=== PATIENT | female | born 2000 | race Caucasian/White ===

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

== ENCOUNTER 2018-01-03 12:49 | Emergency (ER) | payer OTHER ==
--- NOTE | 2018-01-03 14:09 | ERPHSYRPT ---
- History of Present Illness Time Seen by Provider: 01/03/18 13:56 Historian: patient, family Exam Limitations: no limitations Patient Subjective Stated Complaint: pt reports she has been having abd pain radiaitng to her shoulder blade-n/v/d-states she had a delgado a scan earlier today and they couldn't finish it-states that she attempted to eat and vomited again Triage Nursing Assessment: pt pink warm and [id number] soft and tender to palp-resp easy and nonlabored-mucous membranes pink and moist Physician History: The patient is a 17-year-old female with her boyfriend complaining of nausea, vomiting, and right upper quadrant abdominal pain after having a HIDA scan today to evaluate her gallbladder. She went home to eat after the scan and vomited after eating cereal. She has a several month history of abdominal pain with several imaging studies to look at the gallbladder. On Wednesday she was at her boyfriend's town, [place], and went to the ER because of abdominal pain. She states that they told her that it was "definitely her gallbladder". In our system I noted that she had an abdomen pelvis CT scan done on October 18 that was negative. She had an ultrasound of the right upper quadrant done on December 29 that was negative. She had a HIDA procedure done today that was negative. Her past medical history is significant for bipolar disease. Timing/Duration: today, other (several months) Activities at Onset: other (eating) Quality: sharpness Abdominal Pain Onset Location: RUQ Pain Radiation: back Severity of Pain-Max: moderate Severity of Pain-Current: moderate Modifying Factors: Improves With: eating Associated Symptoms: nausea, vomiting Previous symptoms: same symptoms as today, recently seen, recently treated Allergies/Adverse Reactions: divalproex sodium [From Depakote] Allergy (Intermediate, Verified 01/03/18 13:23 ) Hives lithium Adverse Reaction (Intermediate, Verified 01/03/18 13:23) Rash ondansetron [From Zofran] Adverse Reaction (Intermediate, Verified 01/03/18 13: 23) "extremely nausea"-headache Home Medications: Albuterol Sulfate [Proair Hfa] 8.5 gm IH UD 12/09/17 [History] Clonidine HCl 0.2 mg PO HS 12/09/17 [History] Escitalopram Oxalate 10 mg [Lexapro 10 MG] 10 mg PO DAILY 12/09/17 [History] Lansoprazole [Prevacid 24Hr] 15 mg PO DAILY 12/09/17 [History] Lurasidone HCl [Latuda] 40 mg PO HS 12/09/17 [History] Norgestimate-Ethinyl Estradiol [Sprintec] 1 each PO DAILY 12/09/17 [History] Propranolol HCl 10 mg [Inderal 10 MG] 10 mg PO BID 12/09/17 [History] Famotidine 20 mg [Pepcid 20 MG] 40 mg PO DAILY 01/03/18 [History] Trazodone HCl 50 mg [Desyrel 50 mg] 100 mg PO HS 01/03/18 [History] Hx Tetanus, Diphtheria Vaccination/Date Given: Yes Hx Influenza Vaccination/Date Given: No Hx Pneumococcal Vaccination/Date Given: No Immunizations Up to Date: Yes - Review of Systems Constitutional: No Fever, No Chills Eyes: No Symptoms Ears, Nose, & Throat: No Symptoms Respiratory: No Cough, No Dyspnea Cardiac: No Chest Pain, No Edema, No Syncope Abdominal/Gastrointestinal: Abdominal Pain, Nausea, Vomiting Genitourinary Symptoms: No Dysuria Musculoskeletal: No Back Pain, No Neck Pain Skin: No Rash Neurological: No Dizziness, No Focal Weakness, No Sensory Changes Psychological: No Symptoms Endocrine: No Symptoms Hematologic/Lymphatic: No Symptoms Immunological/Allergic: No Symptoms All Other Systems: Reviewed and Negative - Past Medical History Pertinent Past Medical History: Yes Neurological History: No Pertinent History ENT History: No Pertinent History Cardiac History: No Pertinent History Respiratory History: Asthma Endocrine Medical History: No Pertinent History Musculoskeletal History: Degenerative Disk Disease, Osteoarthritis GI Medical History: No Pertinent History History: Other Psycho-Social History: Anxiety, Bipolar Female Reproductive Disorders: No Pertinent History Other Medical History: No other health issues noted. - Past Surgical History Past Surgical History: Yes Neuro Surgical History: No Pertinent History Cardiac: No Pertinent History Respiratory: No Pertinent History Gastrointestinal: Exploratory Laparoscopy, Other Genitourinary: No Pertinent History, Other Musculoskeletal: Orthopedic Surgery Female Surgical History: Other Other Surgical History: back surgery x2-discectomy, colonoscopy and EGD 2017 or 2018 - Social History Smoking Status: Current every day smoker How long have you smoked: yrs Exposure to second hand smoke: Yes Alcohol Use: Socially Drug Use: none Patient Lives Alone: No Significant Family History: no pertinent family hx - Female History Hx Last Menstrual Period: last week Hx Now: No (tested sat) - Nursing Vital Signs Nursing Vital Signs: Initial Vital Signs Temperature 98.3 F 01/03/18 13:18 Pulse Rate 77 01/03/18 13:18 Respiratory Rate 18 01/03/18 13:18 Blood Pressure 127/95 01/03/18 13:18 O2 Sat by Pulse Oximetry 100 01/03/18 13:18 Pain Scale Pain Intensity 4 - Physical Exam General Appearance: no apparent distress, alert Eye Exam: PERRL/EOMI, eyes nml inspection Ears, Nose, Throat Exam: normal ENT inspection, pharynx normal, moist mucous membranes Neck Exam: normal inspection, non-tender, supple, full range of motion Respiratory Exam: normal breath sounds, lungs clear, No respiratory distress Cardiovascular Exam: regular rate/rhythm, normal heart sounds Gastrointestinal/Abdomen Exam: tenderness (RUQ) Pelvic Exam: not done Rectal Exam: not done Back Exam: normal inspection, normal range of motion, No CVA tenderness, No vertebral tenderness Extremity Exam: normal inspection, normal range of motion, pelvis stable Neurologic Exam: alert, oriented x 3, cooperative, normal mood/affect, nml cerebellar function, sensation nml, No motor deficits Skin Exam: normal color, warm, dry SpO2 Interpretation: normal SpO2: 100 Oxygen Delivery: Room Air Ordered Tests: Active Orders 24 hr Category Date Time Status IV Insertion STAT Care 01/03/18 14:34 Active AMYLASE Stat Lab 01/03/18 14:44 Completed CBC W DIFF Stat Lab 01/03/18 14:44 Completed CMP Stat Lab 01/03/18 14:44 Completed HCG QUALITATIVE,SERUM Stat Lab 01/03/18 14:44 Completed LIPASE Stat Lab 01/03/18 14:44 Completed Lactic Acid Stat Lab 01/03/18 14:34 Results UA W/RFX UR CULTURE Stat Lab 01/03/18 15:00 Completed Urine Triage Profile Stat Lab 01/03/18 15:00 Completed Medication Summary Discontinued Medications Generic Name Dose Route Start Last Admin Trade Name Freq PRN Reason Stop Dose Admin Famotidine 20 mg 01/03/18 14:34 01/03/18 14:55 Pepcid 20 Mg Vial IV 01/03/18 14:35 20 mg STAT ONE Administration Famotidine Confirm 01/03/18 14:49 Pepcid 20 Mg Vial Administered 01/03/18 14:50 Dose 20 mg IV .STK-MED ONE Sodium Chloride 1,000 mls @ 999 mls/hr 01/03/18 14:34 01/03/18 16:30 Sodium Chloride 0.9% 1000 Ml IV 01/03/18 15:34 Infused .Q1H1M STA Infusion Sodium Chloride Confirm 01/03/18 14:49 Sodium Chloride 0.9% 1000 Ml Administered 01/03/18 14:50 Dose 1,000 mls @ ud .ROUTE .STK-MED ONE Ketorolac Tromethamine 30 mg 01/03/18 14:34 01/03/18 14:54 Toradol 30 Mg Injection IV 01/03/18 14:35 30 mg STAT ONE Administration Ketorolac Tromethamine Confirm 01/03/18 14:48 Toradol 30 Mg Injection Administered 01/03/18 14:49 Dose 30 mg .ROUTE .STK-MED ONE Promethazine HCl 12.5 mg 01/03/18 14:34 01/03/18 14:55 Phenergan 25 Mg Inj IV 01/03/18 14:35 12.5 mg STAT ONE Administration Promethazine HCl Confirm 01/03/18 14:48 Phenergan 25 Mg Inj Administered 01/03/18 14:49 Dose 25 mg .ROUTE .STK-MED ONE Lab/Rad Data: Laboratory Result Diagrams 01/03/18 14:44 01/03/18 14:44 Laboratory Results 01/03/18 01/03/18 01/03/18 Range/Units 15:00 15:00 14:44 WBC (4.0-10.5) K/mm3 RBC (4.1-5.4) M/mm3 Hgb (12.0-16.0) gm/dl Hct (35-47) % MCV (78-100) fl MCH (26-32) pg MCHC (32-36) g/dl RDW (11.5-14.0) % Plt Count (150-450) K/mm3 MPV (6-9.5) fl Gran % (36.0-66.0) % Eos # (Auto) (0-0.5) Absolute Lymphs (auto) (1.0-4.6) Absolute Monos (auto) (0.0-1.3) Lymphocytes % (24.0-44.0) % Monocytes % (0.0-12.0) % Eosinophils % (0.00-5.0) % Basophils % (0.0-0.4) % Absolute Granulocytes (1.4-6.9) Basophils # (0-0.4) Sodium (137-145) mmol/L Potassium (3.5-5.1) mmol/L Chloride (98-107) mmol/L Carbon Dioxide (22-30) mmol/L Anion Gap (5-15) MEQ/L BUN (7-17) mg/dL Creatinine (0.52-1.04) mg/dL Estimated GFR ML/MIN Glucose (74-106) mg/dL Lactic Acid (0.4-2.0) Calcium (8.4-10.2) mg/dL Total Bilirubin (0.2-1.3) mg/dL AST (14-36) U/L ALT (0-35) U/L Alkaline Phosphatase (38-126) U/L Serum Total Protein (6.3-8.2) g/dL Albumin (3.5-5.0) g/dL Amylase (30-110) U/L Lipase (23-300) U/L Serum , Qual NEGATIVE (Negative) Ur Collection Type VOID Urine Color YELLOW (YELLOW) Urine Appearance CLEAR (CLEAR) Urine pH 5.0 (5-6) Ur Specific Diggs 1.025 (1.005-1.025) Urine Protein NEGATIVE (Negative) Urine Ketones NEGATIVE (NEGATIVE) Urine Blood TRACE NON-HEM (0-5) Raul/ul Urine Nitrite NEGATIVE (NEGATIVE) Urine Bilirubin NEGATIVE (NEGATIVE) Urine Urobilinogen NORMAL (0-1) mg/dL Ur Leukocyte Esterase NEGATIVE (NEGATIVE) Urine Culture Reflexed NO (NO) Urine Glucose NEGATIVE (NEGATIVE) mg/dL Urine Opiates Level POSITIVE (NEGATIVE) Ur Methadone NEGATIVE (NEGATIVE) Urine Barbiturates NEGATIVE (NEGATIVE) Ur Phencyclidine (PCP) NEGATIVE (NEGATIVE) Urine Amphetamine NEGATIVE (NEGATIVE) U Benzodiazepine Level NEGATIVE (NEGATIVE) Urine Cocaine NEGATIVE (NEGATIVE) Urine Marijuana (THC) NEGATIVE (NEGATIVE) Specimen Received 01/03/18 1545 0501/03/18 01/03/18 Range/Units 14:44 14:44 14:34 WBC 5.6 (4.0-10.5) K/mm3 RBC 4.86 (4.1-5.4) M/mm3 Hgb 15.1 (12.0-16.0) gm/dl Hct 42.3 (35-47) % MCV 87.0 (78-100) fl MCH 31.1 (26-32) pg MCHC 35.7 (32-36) g/dl RDW 12.6 (11.5-14.0) % Plt Count 194 (150-450) K/mm3 MPV 11.4 H (6-9.5) fl Gran % 54.7 (36.0-66.0) % Eos # (Auto) 0.31 (0-0.5) Absolute Lymphs (auto) 1.53 (1.0-4.6) Absolute Monos (auto) 0.66 (0.0-1.3) Lymphocytes % 27.6 (24.0-44.0) % Monocytes % 11.9 (0.0-12.0) % Eosinophils % 5.6 H (0.00-5.0) % Basophils % 0.2 (0.0-0.4) % Absolute Granulocytes 3.04 (1.4-6.9) Basophils # 0.01 (0-0.4) Sodium 146 H (137-145) mmol/L Potassium 4.7 (3.5-5.1) mmol/L Chloride 108 H (98-107) mmol/L Carbon Dioxide 20 L (22-30) mmol/L Anion Gap 21.9 H (5-15) MEQ/L BUN 12 (7-17) mg/dL Creatinine 0.75 (0.52-1.04) mg/dL Estimated GFR > 60.0 ML/MIN Glucose 103 (74-106) mg/dL Lactic Acid 2.7 H (0.4-2.0) Calcium 9.8 (8.4-10.2) mg/dL Total Bilirubin 0.80 (0.2-1.3) mg/dL AST 51 H (14-36) U/L ALT 56 H (0-35) U/L Alkaline Phosphatase 88 (38-126) U/L Serum Total Protein 7.6 (6.3-8.2) g/dL Albumin 4.6 (3.5-5.0) g/dL Amylase 38 (30-110) U/L Lipase 72 (23-300) U/L Serum , Qual (Negative) Ur Collection Type Urine Color (YELLOW) Urine Appearance (CLEAR) Urine pH (5-6) Ur Specific Diggs (1.005-1.025) Urine Protein (Negative) Urine Ketones (NEGATIVE) Urine Blood (0-5) Raul/ul Urine Nitrite (NEGATIVE) Urine Bilirubin (NEGATIVE) Urine Urobilinogen (0-1) mg/dL Ur Leukocyte Esterase (NEGATIVE) Urine Culture Reflexed (NO) Urine Glucose (NEGATIVE) mg/dL Urine Opiates Level (NEGATIVE) Ur Methadone (NEGATIVE) Urine Barbiturates (NEGATIVE) Ur Phencyclidine (PCP) (NEGATIVE) Urine Amphetamine (NEGATIVE) U Benzodiazepine Level (NEGATIVE) Urine Cocaine (NEGATIVE) Urine Marijuana (THC) (NEGATIVE) Specimen Received - Progress Progress: improved Progress Note: 01/03/18 16:47 After getting all of the test results and reviewing them, I went in and talked to the patient. One thing that was important for me to tell her was that we attempted numerous times over the past several hours to obtain the records from [facility] in [facility] about her recent ER visit. After numerous attempts and phone calls, we still were not able to obtain the records. I discussed the problem with [facility] with the patient. I then slowly and methodically went over all of the laboratory results from today. I had also discussed earlier in the day the abdomen and pelvis CT scan, gallbladder ultrasound, and HIDA scan done at our hospital. I sympathize with her that she is experiencing some pain but I do not know exactly what it is. The only abnormality was of very mildly elevated AST and ALTs. I explained very carefully that she needs to follow-up with Dr. Johnson who has been helping her over the past several months with this problem. I explained to her that I could call a surgeon but without any abnormal imaging studies or laboratory results, a surgeon would not come in on an emergent basis. As I was telling her this, I noticed she was texting. Within 30 seconds we received a phone call from her [id number] complaining that I had told her that she was stupid. I quickly went back into the room to discuss with the patient that I did not tell her she was stupid. I once again told her I was trying to help her. The patient became angry and was threatening to rip her IV out. Patient stated she wanted to go home. Counseled pt/family regarding: lab results, diagnosis, need for follow-up, rad results - Departure Time of Disposition: 16:53 Departure Disposition: Home Clinical Impression: Abdominal pain, Bipolar disorder Condition: Stable Critical Care Time: No Referrals: VIK LAUREN [Primary Care Provider] -
[2018-01-03] MEDS ORDERED: Phenergan 25 MG INJ IV ONE (14:34)
[2018-01-03] MEDS ORDERED: Pepcid 20 MG VIAL IV ONE ×2 (14:34→14:49)
[2018-01-03] MEDS ORDERED: Sodium Chloride 0.9% 1000 ML 1,000 ML IV STA (14:34)
[2018-01-03] MEDS ORDERED: TORAdol 30 mg Injection IV ONE (14:34)
[2018-01-03 14:45] LABS: BASOPHIL % 0.2 % (0.0-0.4); Basophil (Absolute #) 0.01 (0-0.4); Eosinophil % 5.6 % (0.00-5.0); Eosinophil (Absolute #) 0.31 (0-0.5); Granulocyte Absolute (ANC) 3.04 (1.4-6.9); Granulocytes % 54.7 % (36.0-66.0); Hematocrit 42.3 % (35-47); Hemoglobin 15.1 gm/dl (12.0-16.0); Lymphocyte (Absolute #) 1.53 (1.0-4.6); Lymphocytes % 27.6 % (24.0-44.0); Mean Corpuscular Hemoglobin 31.1 pg (26-32); Mean Corpuscular Hgb Concent. 35.7 g/dl (32-36); Mean Platelet Volume 11.4 fl (6-9.5); Monocyte (Absolute #) 0.66 (0.0-1.3); Monocytes % 11.9 % (0.0-12.0); Platelet Count 194 K/mm3 (150-450); Red Blood Count 4.86 M/mm3 (4.1-5.4); Red Cell Distribution Width 12.6 % (11.5-14.0); White Blood Count 5.6 K/mm3 (4.0-10.5)
[2018-01-03 14:46] LABS: Lactic Acid 2.7 (0.4-2.0)
[2018-01-03] MEDS ORDERED: TORAdol 30 mg Injection ONE (14:48)
[2018-01-03] MEDS ORDERED: Phenergan 25 MG INJ ONE (14:48)
[2018-01-03] MEDS ORDERED: Sodium Chloride 0.9% 1000 ML 1,000 ML ONE (14:49)
[2018-01-03 15:10] LABS: ALBUMIN 4.6 g/dL (3.5-5.0); ALKALINE PHOSPHATASE 88 U/L (38-126); AMYLASE 38 U/L (30-110); ANION GAP 21.9 MEQ/L (5-15); BLOOD UREA NITROGEN 12 mg/dL (7-17); CHLORIDE 108 mmol/L (98-107); Calcium 9.8 mg/dL (8.4-10.2); Carbon Dioxide 20 mmol/L (22-30); Creatinine 1 0.75 mg/dL (0.52-1.04); Glucose 103 mg/dL (74-106); LIPASE 72 U/L (23-300); Potassium 4.7 mmol/L (3.5-5.1); SGOT/AST 51 U/L (14-36); SGPT/ALT 56 U/L (0-35); SODIUM 146 mmol/L (137-145); Total Protein 7.6 g/dL (6.3-8.2)
[2018-01-03 15:17] VITALS: BP 126/83; PULSE 62
[2018-01-03 15:43] LABS: Appearance CLEAR (CLEAR); Specific Gravity 1.025 (1.005-1.025)
[2018-01-03 15:44] LABS: Bilirubin NEGATIVE (NEGATIVE); Blood TRACE NON-HEM Ery/ul (0-5); Glucose NEGATIVE (NEGATIVE); Ketones NEGATIVE (NEGATIVE); Leukocyte Esterase NEGATIVE (NEGATIVE); Nitrite NEGATIVE (NEGATIVE); Protein,Urine Dip NEGATIVE (Negative); Urobilinogen NORMAL mg/dL (0-1)
[2018-01-03 15:49] LABS: Amphetamine,Urine NEGATIVE (NEGATIVE); Barbiturate,Urine NEGATIVE (NEGATIVE); Benzodiazepine,Urine NEGATIVE (NEGATIVE); Cocaine,Urine NEGATIVE (NEGATIVE); Methadone,Urine NEGATIVE (NEGATIVE); Opiate,Urine POSITIVE (NEGATIVE); PCP,Urine NEGATIVE (NEGATIVE); THC,Urine NEGATIVE (NEGATIVE)
[2018-01-03 16:52] VITALS: O2SAT 100
== END 2018-01-03 17:12 | disposition left against medical advice (07) ==
LOC: ED 12:49
DX: R10.11 Right upper quadrant pain (principal); R11.2 Nausea with vomiting, unspecified; F31.9 Bipolar disorder, unspecified; J45.909 Unspecified asthma, uncomplicated; M19.90 Unspecified osteoarthritis, unspecified site; F41.9 Anxiety disorder, unspecified; Z79.899 Other long term (current) drug therapy; Z72.0 Tobacco use
CPT/HCPCS: 36000; 36415; 78226; 80053; 80307; 81002; 82150; 83605; 83690; 84703; 85025; 96360; 96372; 96374; 96375; 99284; A9537; J1885; J2270; J2550